=== PATIENT | male | born 1965 | race Caucasian/White ===

== ENCOUNTER 2022-03-14 02:10 | Day surgery (SDC) | payer BC, SELFPAY ==
[2022-02-23 14:48] VITALS: BMI 27.4
--- NOTE | 2022-03-13 16:40 | P.HP_ITS ---
History of Present Illness History of Present Illness Consent: Risks, benefits, and alternatives have been discussed and questions answered. Patient agrees to proceed with procedure. Chief complaint: neoplasm screening Narrative: Armaan Carlson is a 57 year old male With history of colon polyps here for colon cancer screening. Review of Systems Review of Systems: All systems reviewed & are unremarkable except as noted in HPI and below PMFSH Past Medical History Medical History BMI 27.0-27.9,adult BMI 29.0-29.9,adult Surgical History Surgical History H/O shoulder surgery Family History Family History Father Malignant neoplasm of prostate Heart disease Mother Diabetes mellitus Heart disease Sibling Breast cancer Sibling Acute myocardial infarction Kidney stones Social History Social History Smoking status: Never smoker Second hand tobacco smoke exposure: Yes Alcohol intake: current Drinks per week: 7 Substance use: never Substance use type: does not use Living arrangements: alone 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 Gender identity (if verbalized by the patient): Male Spiritual care concerns: No Meds Home Medications and Allergies Home Medications Medication Instructions Recorded Confirmed Type rosuvastatin 20 mg tablet See Rx Instructions .Route 01/11/22 02/23/22 Rx .COMPLEX #90 tabs Allergies Allergy/AdvReac Type Severity Reaction Status Date / Time No Known Allergies Allergy Verified 03/14/22 06:18 Exam Resp: Auscultation: clear to auscultation bilaterally Cardio: Rate: regular rate Rhythm: regular rhythm GI: GI Palp: Yes Soft to palpation and No Tenderness to palpation present (GI) Assessment and Plan Assessment and plan (1) Screening for malignant neoplasm of colon: Code(s): Z12.11 - Encounter for screening for malignant neoplasm of colon Status: Acute Assessment and Plan: Colonoscopy with possible biopsy or polypectomy or cautery or injection of substances.
[2022-03-14 06:19] VITALS: BP 127/82; PULSE 86; RESP 18; TEMP 36.3; O2SAT 100; BMI 27.0
[2022-03-14] MEDS: LACTATED RINGERS 1,000 ML 150 ML IV CONT (06:30)
--- NOTE | 2022-03-14 07:19 | WPDANESEPPF ---
Anes - Initial Pre Proc Eval Procedure: Operation Date: 03/14/22 07:30 Proposed Procedures p Screening Colonoscopy - Luis Alberto Patel MD Date/Time: 03/14/22 07:19 Surgeon: Luis Alberto Patel MD Pre Op Diagnosis: neoplasm screening Patient Data Age: 57 Gender: M Height: 1.73 m Weight: 80.7 kg Last Vital Signs Temp 97.4 F L 03/14/22 06:19 Pulse 86 03/14/22 06:19 Resp 18 03/14/22 06:19 BP 127/82 03/14/22 06:19 Pulse Ox 100 03/14/22 06:19 O2 Del Method Room Air 03/14/22 06:19 Allergies Allergy/AdvReac Type Severity Reaction Status Date / Time No Known Allergies Allergy Verified 03/14/22 06:18 Home Medications Medication Instructions Recorded Confirmed Type rosuvastatin 20 mg tablet See Rx Instructions .Route 01/11/22 02/23/22 Rx .COMPLEX #90 tabs Patient hx anesthesia problems: none Family hx anesthesia problems: none Results Review: All pre-operative results and documents have been reviewed as part of the pre-operative evaluation. 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 Informed Consent: The patient's anesthetic plan and its attendant risks and benefits were discussed with the patient/family/POA. Questions were solicited and answers provided to the satisfaction of the patient/family/POA.
[2022-03-14 07:50] VITALS: BP 99/68; PULSE 83; RESP 12; O2SAT 100
[2022-03-14 08:00] VITALS: BP 104/74; PULSE 70; RESP 18; O2SAT 99
[2022-03-14 08:10] VITALS: BP 108/79; PULSE 72; RESP 20; O2SAT 100
== END 2022-03-14 08:23 | disposition home or self-care (01) ==
PROVIDERS: PCP Family Medicine; Visit Provider Internal Medicine Gastroenterology
PROC: 0DJD8ZZ Inspection of Lower Intestinal Tract, Via Natural or Artificial Opening Endoscopic (ICD-10-PCS; CPT 45378; principal; 2022-03-14 07:30)
DX: Z12.11 Encounter for screening for malignant neoplasm of colon (principal); K63.5 Polyp of colon; K64.4 Residual hemorrhoidal skin tags; K64.8 Other hemorrhoids; K57.30 Diverticulosis of large intestine without perforation or abscess without bleeding
CPT/HCPCS: 45380; 88305; J2704; J7120